=== PATIENT | male | born 1995 | race Caucasian/White ===

== ENCOUNTER 2020-09-12 21:44 | Emergency (ER) | payer OTHER ==
[~2020-09-12] VITALS: Ht 175.3 cm; Wt 70.3 kg
[2020-09-12 22:30] VITALS: BP 117/80
--- NOTE | 2020-09-12 22:33 | NUR ---
TO LOBBY A/W BED AMBULATORY
[2020-09-13] MEDS ORDERED: ONDANSETRON 4 MG ODT PO ONE (00:10)
[2020-09-13 00:33] VITALS: BP 117/80
== END 2020-09-13 00:33 | disposition home or self-care (01) ==
LOC: MED 21:44
DX: R42 Dizziness and giddiness (principal); R11.0 Nausea
CPT/HCPCS: 99283; Q0162